=== PATIENT | female | born 1980 | race Caucasian/White ===

== ENCOUNTER 2024-01-16 15:07 | Emergency (ER) | payer SELFPAY ==
[~2024-01-16] VITALS: Ht 149.9 cm; Wt 79.0 kg
[2024-01-16 15:19] VITALS: BP 141/94; TEMP 97.8; O2SAT 97
== END 2024-01-16 15:55 | disposition left against medical advice (07) ==
LOC: M ED 15:07 → EDBD 15:07 → M ED 15:55
DX: T50.911A Poisoning by multiple unspecified drugs, medicaments and biological substances, accidental (unintentional), initial encounter (principal); F17.210 Nicotine dependence, cigarettes, uncomplicated; F12.10 Cannabis abuse, uncomplicated; F10.10 Alcohol abuse, uncomplicated; Z88.0 Allergy status to penicillin; Z88.8 Allergy status to other drugs, medicaments and biological substances